=== PATIENT | female | born 1955 | race Caucasian/White ===

== ENCOUNTER 2018-09-15 22:22 | Emergency (ER) | payer OTHER, BC ==
[~2018-09-15] VITALS: Ht 172.7 cm; Wt 94.8 kg
[2018-09-15 22:48] VITALS: BP 170/88
[2018-09-15] MEDS ORDERED: HYDROcodone/APAP 5/325MG 1 TAB TABLET PO ONE (23:45)
[2018-09-16] MEDS ORDERED: HYDR-2761 PO (00:06)
--- NOTE | 2018-09-16 00:06 | PHYS DOC ---
Past Medical History Past Medical History: Diabetes-Type II, Glaucoma, High Cholesterol, Hyper tension Past Surgical History: Tubal ligation Additional Past Surgical Histo: breast biopsy, L knee surgery Alcohol Use: Occasionally Drug Use: None Adult General Chief Complaint Chief Complaint: MECHANICAL FALL HPI HPI Patient is a 62 year old female who presents to the emergency department with complaints of bilateral elbow bilateral wrist pain after she missed a step while shopping at a store today and fell forward landing onto her hands. He states that the injury happened around 1:30 PM. She denies any numbness, or tingling of her upper extremities. She states that she is unable to straighten either of her arms. She currently rates the pain a 8 out of 10 on the pain scale and reports that she took some naproxen at home with little relief of her pain. He denies any head injury, loss of consciousness, vomiting, or dizziness following the inj ury. Patient states earlier when she moved her elbow she did feel little nauseated from the pain. Review of Systems Review of Systems Constitutional: Denies fever or chills [] GI: See history of present illness Musculoskeletal: Denies back pain see history of present illness Integument: Denies rash or skin lesions [] Neurologic: Denies headache, focal weakness or sensory changes [] Complete systems were reviewed and found to be within normal limits, except as documented in this note. Current Medications Current Medications Current Medications Medications (Trade) Dose Ordered Sig/Teresa Start Time Stop Time Status Last Admin Dose Admin Acetaminophen/ Hydrocodone Bitart (Lortab 5/325) 1 tab 1X ONCE 09/15/18 23:45 09/15/18 23:46 DC 09/15/18 23:27 1 TAB Allergies Allergies Allergies Coded Allergies Type Severity Reaction Last Updated Verified No Known Drug Allergies 09/15/18 No Physical Exam Physical Exam Constitutional: Well developed, well nourished, no acute distress, non-toxic appearance. [] HENT: Normocephalic, atraumatic, bilateral external ears normal, nose normal. [] Eyes: conjunctiva normal, no discharge. [] Neck: Normal range of motion, , no stridor. [] Cardiovascular:Heart rate regular rhythm, Lungs & Thorax: Respirations even and unlabored, no retractions, no respiratory distress Skin: Warm, dry, no erythema,; small abrasion no active bleeding noted to left knee Extremities: No cyanosis, no clubbing; limited range of motion of bilateral elbows due to pain intolerance, full range of motion of bilateral wrists with mild tenderness to palpation of bilateral wrists; no bruising, no deformities, no crepitus, Neurologic: Alert and oriented X 3, no focal deficits noted. [] Psychologic: Affect normal, judgement normal, mood normal. [] Current Patient Data Vital Signs Vital Signs Date Time Temp Pulse Resp B/P (MAP) Pulse Ox O2 Delivery O2 Flow Rate FiO2 09/15/18 23:27 19 99 Nasal Cannula 09/15/18 22:48 98.2 78 170/88 (115) 98.2 EKG EKG [] Radiology/Procedures Radiology/Procedures Changes consistent with bilateral radial head fractures seen on elbow films as read by Dr. Leigh Bilateral wrist films negative for any acute findings as read by Dr. Leigh[] Course & Med Decision Making Course & Med Decision Making Pertinent Labs and Imaging studies reviewed. (See chart for details) dx: Closed radial head fracture of the left arm, closed radial head fracture of the right arm Bilateral wrist x-rays were negative for any acute findings. Changes consistent with bilateral radial head fractures seen on elbow films as read by Dr. Leigh Patient was placed in bilateral slings. A hydrocodone was given. Patient received copies of her x-rays on a disc to take to her orthopedic doctor back home. Prescription was written for hydrocodone No. 20., Follow-up with Dr. Trivedi or your orthopedic doctor in 1-2 days for further evaluation and treatment. Return to the ER symptoms worsen. Patient verbalized an understanding of home care, medications, follow-up, and return to ED instructions and was in agreement with the plan of care. [] Dragon Disclaimer Dragon Disclaimer This electronic medical record was generated, in whole or in part, using a voice recognition dictation system. Departure Departure Impression: Primary Impression: Fracture of radial head, left, closed Additional Impression: Fracture of radial head, right, closed Disposition: 01 HOME, SELF-CARE Condition: STABLE Referrals: KALEB TRIVEDI MD Patient Instructions: Radial Head Fracture, [id number] Additional Instructions: Fill prescription(s) and use as directed. Recommend application of ice, elevation, and rest of affected extremity. Wear the slings that were placed until follow up appointment with your orthopedic doctor or Dr. Trivedi. Return to the ER if your symptoms worsen. Scripts Hydrocodone Bit/Acetaminophen (HYDROCODONE-APAP 5-325 ) 1 Tab Tablet 1 TAB PO PRN Q6HRS PRN for PAIN for 5 Days, #20 TAB 0 Refills Prov: CHANNING HARRIS APRN 09/16/18 Problem Qualifiers Primary Impression: Fracture of radial head, left, closed Encounter type: initial encounter Fracture alignment: nondisplaced Qualified Codes: S52.125A - Nondisplaced fracture of head of left radius, initial encounter for closed fracture Additional Impression: Fracture of radial head, right, closed Encounter type: initial encounter Fracture alignment: nondisplaced Qualified Codes: S52.124A - Nondisplaced fracture of head of right radius, initial encounter for closed fracture CHANNING HARRIS [employer] Sep 16, 2018 00:06
--- NOTE | 2018-09-16 04:23 | RAD ---
Bilateral ELBOW AP LATERAL AND OBLIQUE Clinical Indication: Bilateral elbow pain after fall. Comparison: None. Findings: Left: There is lipohemarthrosis. This suggests that there is acute fracture but no fracture is definitely seen. There is no dislocation. The mineralization is normal. Right: There is lipohemarthrosis. There is subtle cortical defect of the lateral proximal radial head likely due to nondisplaced acute traumatic fracture. There is no dislocation. Mineralization is normal. IMPRESSION: 1. There are bilateral lipohemarthroses suggesting there are acute fractures bilaterally. 2. There is subtle nondisplaced fracture of the proximal right radial head. 3. Left fracture is radiographically occult. Electronically signed by: Carlos Elliott MD (09/16/2018 4:20 AM) [facility]
--- NOTE | 2018-09-16 04:25 | RAD ---
WRIST BILAT 3V Clinical Indication: Bilateral wrist pain after fall. Comparison: None. Findings: Right: No acute fracture or dislocation. No soft tissue swelling. Joint space narrowing first CMC. Left: No acute fracture or dislocation. No soft tissue swelling. Joint space narrowing first CMC. The mineralization is normal. IMPRESSION: No acute fracture. Electronically signed by: Carlos Elliott MD (09/16/2018 4:22 AM) [facility]
== END 2018-09-16 00:10 | disposition home or self-care (01) ==
LOC: ER 22:22
DX: S52.125A Nondisplaced fracture of head of left radius, initial encounter for closed fracture (principal); S52.124A Nondisplaced fracture of head of right radius, initial encounter for closed fracture; E11.39 Type 2 diabetes mellitus with other diabetic ophthalmic complication; H40.9 Unspecified glaucoma; I10 Essential (primary) hypertension; E78.00 Pure hypercholesterolemia, unspecified; W18.39XA Other fall on same level, initial encounter; Y93.89 Activity, other specified; Y92.89 Other specified places as the place of occurrence of the external cause; Y99.8 Other external cause status
CPT/HCPCS: 73080; 73110; 99284